=== PATIENT | female | born 1960 | race Caucasian/White ===

== ENCOUNTER 2022-02-08 18:02 | Observation (INO) | payer OTHER, SELFPAY ==
--- NOTE | ~2022-02-08 | MR_ITS ---
EXAMINATION: MR MRCP wo/w con/w 3D wo ind DATE: 02/09/2022 10:55 INDICATION: Elevated liver function tests. TECHNIQUE: Magnetic resonance imaging (MRI) of the abdomen was performed without and with 14 mL Multi jaime intravenous contrast. Sequences included coronal T2-weighted SS-FSE, coronal T2-weighted FS SS- FSE, coronal T2-weighted FS FIESTA, axial T2-weighted FS FIESTA, axial T2-weighted FIESTA, sagittal T 2-weighted SS-FSE, axial T1-weighted dual-echo FSPGR, axial T2-weighted SS-FSE, axial T1-weighted LAV A, axial T2-weighted STIR FSE. Thick-slab T2-weighted FRFSE-XL images were obtained for magnetic reso nance cholangiopancreatography (MRCP). Rotating maximum intensity projection 3-D reconstructions of t he volumetric data were created by the technologist. Postcontrast sequences included a time course of axial T1-weighted LAVA. COMPARISON: None. FINDINGS: ABDOMEN MRI: Heart size is normal. No pericardial or pleural effusion. There is mild intrahepatic barb iary ductal dilation and periportal edema. No hepatic parenchymal lesions identified. Pancreas, splee n and bilateral adrenal glands are normal. Sludge and multiple low signal intensity gallstones within the decompressed gallbladder. 3 cm right renal cyst. Couple additional <5 mm bilateral renal cysts. There is focal wall thickening along the distal descending colon with stranding in the surrounding fa t. Remainder the visualized bowels are unremarkable with no obstruction. No pathologically enlarged a bdominal lymphadenopathy. Normal bone marrow signal throughout. ABDOMEN MRCP: In addition to the mild intrahepatic biliary ductal dilation there is dilation of the common bile susan t which measures up to 1.3 cm in maximal diameter. A couple small mobile gallstones are seen in the d istal common bile duct, the larger measuring 4-5 mm in maximal diameter. These appear to change sligh tly in position when comparing the MRCP images with several of the third T2-weighted images. Main taylor creatic duct is normal. IMPRESSION: 1. Wall thickening and surrounding inflammatory stranding at the distal descending colon with differe ntial including focal colitis, diverticulitis or colon cancer. Correlate clinically and would recomme nd further evaluation with colonoscopy when clinically appropriate. 2. Cholelithiasis and choledocholithiasis with mild intrahepatic biliary ductal dilation, mild to mod erate dilation of the common bile duct which measures up to 13 mm and mild periportal edema. Reviewed, dictated and finalized at location B. IMPRESSION: 1. Wall thickening and surrounding inflammatory stranding at the distal descend ing colon with differential including focal colitis, diverticulitis or colon ca ncer. Correlate clinically and would recommend further evaluation with colonosc opy when clinically appropriate. 2. Cholelithiasis and choledocholithiasis with mild intrahepatic biliary ductal dilation, mild to moderate dilation of the common bile duct which measures up to 13 mm and mild periportal edema.
--- NOTE | ~2022-02-08 | XR_ITS ---
EXAMINATION: XR ERCP DATE: 02/09/2022 14:42 INDICATION: Choledocholithiasis TECHNIQUE: Multiple spot fluoroscopic images of the right upper quadrant were obtained during endosco pic retrograde cholangiopancreatography (ERCP) performed by Dr. Laird. Radiologist was not present for the imaging or procedure. The amount of fluoroscopy time used during this procedure was 1 .4 minutes. A total of 7 fluoroscopic images were recorded. Total DAP was [id number] mGym^2 COMPARISON: 02/09/2022 FINDINGS: Initial images demonstrate cannulation of the ampulla and retrograde contrast administration which ap pears to fill the main pancreatic duct as well as a draining accessory pancreatic duct of [place] w hich appears to drain into the duodenum via the minor papilla. Subsequent images demonstrate cannulat ion and contrast opacification of the dilated common bile duct. Final images demonstrate a balloon sw eeping from proximal to distal along the common bile duct. A small filling defect is seen in the duct distal to the balloon on the penultimate image which appears to obstruct passage of contrast into th e duodenum. The filling defect which likely represents the gallstone identified on prior MR CP is no longer visualized on the final image which demonstrates some drainage of contrast from the common barb e duct into the duodenum. IMPRESSION: 1. Dilation the common bile duct likely secondary to what appears be a gallstone in the distal common bile duct and suggestion of successful balloon sweeping and removal of the stone with contrast drain ing from the common bile duct into the duodenum on the final image. Please refer to the ERCP procedur e note for additional details. Reviewed, dictated and finalized at location B. IMPRESSION: 1. Dilation the common bile duct likely secondary to what appears be a gallston e in the distal common bile duct and suggestion of successful balloon sweeping and removal of the stone with contrast draining from the common bile duct into the duodenum on the final image. Please refer to the ERCP procedure note for ad ditional details.
[2022-02-08 07:40] VITALS: BP 138/74; PULSE 57; RESP 16; TEMP 35.6; O2SAT 98
[2022-02-08 09:16] LABS: Basophils Percent Auto 0.6 % (0.2-1.2); Eosinophils Absolute Auto 0.1 K/mm3 (0-0.3); Eosinophils Percent Auto 0.8 % (0-4.4); Hematocrit 42.8 % (37.0-47.0); Hemoglobin 13.5 g/dL (12.0-15.0); Immature Granulocyte Absolute 0.01 K/mm3 (0.00-0.031); Immature Granulocyte Percent A 0.2 % (0-0.5); Lymphocytes Absolute Auto 1.18 K/mm3 (0.9-3.2); Mean Corpuscular HGB Conc 31.5 g/dl (32-36); Mean Corpuscular Hemoglobin 28.4 pg (26-34); Mean Corpuscular Volume 89.9 fl (80-100); Mean Platelet Volume 10.3 fl (7.4-10.4); Monocytes Absolute Auto 0.5 K/mm3 (0.1-0.6); Monocytes Percent Auto 8.5 % (2.6-8.5); Neutrophils Absolute Auto 4.4 K/mm3 (1.3-6.7); Neutrophils Percent Auto 70.9 % (45.5-73.1); Platelet Count Result 182 k/mm3 (150-375); Red Blood Count 4.76 M/mm3 (4.2-5.4); Red Cell Distribution Width 14.1 % (11.5-14.5); White Blood Count 6.2 K/mm3 (4.5-10.0)
[2022-02-08 09:35] LABS: Alanine Aminotransferase 31 U/L (6-35); Albumin Level 3.7 g/dL (3.5-5.1); Alkaline Phosphatase 109 U/L (38-126); Anion Gap 3 mmol/L (8-16); Aspartate Amino Transferase 42 U/L (14-36); Bilirubin,Total 0.7 mg/dL (0.2-1.3); Blood Urea Nitrogen 9 mg/dL (7-17); Calcium 8.2 mg/dL (8.4-10.2); Carbon Dioxide 30 mmol/L (22-30); Chloride 107 mmol/L (98-107); Estimated Glomerular Filt Rate > 60; Glucose 88 mg/dL (65-110); Potassium 3.7 mmol/L (3.4-5.0); Sodium 140 mmol/L (137-145)
[2022-02-08 09:39] LABS: Lactic Acid Reflex 1.5 mmol/L (0.7-2.0)
[2022-02-08 09:51] LABS: Hemoglobin A1C 5.1 % (<5.7)
[2022-02-08 10:04] VITALS: BMI 25.9
--- NOTE | 2022-02-08 10:09 | ADMGEN ---
This patient, Jordyn eKrr, was admitted to [facility] Room 310-01 at 0740. Patient/family oriented to hospital policies and general routines including ID bracelet, bed and alarms, visiting hours, pain management, procedures, bathroom and other care routines, personal items, smoking policy, room service/diet, and visiting hours. Information on how to activate the Rapid Response Team has been discussed. Patient/Family are encouraged to report perceived risks to care and to ask questions if they do not understand what they are told or what they should do.
[2022-02-08] MEDS: DOCUSATE SODIUM 100 MG CAPSULE PO (14:43)
[2022-02-08 16:00] VITALS: O2SAT 98
--- NOTE | 2022-02-08 16:36 | PM.IMHP ---
H&P: HPI History of Present Illness Date/Time: 02/08/22 16:36 Chief Complaint: Abdominal pain Narrative: 61-year-old female with past medical history significant for hypothyroidism as well as esophageal stricture requiring dilation about a year ago, presented to [facility] with severe abdominal pain after eating. CT scan done in the ER there showed obstructing stone suspected, so patient was transferred here for possible ERCP. Upon her arrival to our facility, all of her symptoms are completely resolved and she is eager for a diet. She does admit to having a several year history of postprandial discomfort, but nothing as severe as she had yesterday. She denied any associated chest pain or shortness of breath. There was no nausea, vomiting or diarrhea. She did not have any fevers or chills. GI has seen the patient, due to her symptoms being completely resolved, an MRCP was ordered. Review of Systems Review of Systems: Twelve point review of systems was reviewed and is negative except as noted in the HPI [facility] Past Medical History Medical History Bile duct abnormality Biliary colic Cholelithiasis Elevated liver enzymes Esophageal stricture Nausea and vomiting in adult Upper abdominal pain Social History Social History Smoking packs per day: 1.5 Smoking cigarettes per day: 30.0 Years smoked: 45 Smoking pack-years: 67.50 Smoking status: Current every day smoker Tobacco type: cigarettes Alcohol intake: never Substance use: never Spiritual care concerns: No Meds Home Medications and Allergies Home Medications Medication Instructions Recorded Confirmed Type levothyroxine 100 mcg tablet 100 tablet PO DAILY 02/08/22 02/08/22 History omega-3 fatty acids-vitamin E 1,000 cap PO DAILY 02/08/22 02/08/22 History 1,000 mg capsule simvastatin 20 mg tablet 20 tablet PO DAILY 02/08/22 02/08/22 History Allergies Allergy/AdvReac Type Severity Reaction Status Date / Time Sulfa (Sulfonamide Allergy Blister Verified 02/08/22 10:31 Antibiotics) codeine AdvReac Jittery Verified 02/08/22 10:31 Vital Signs Vital Signs - 24 hr 02/08/22 07:40 02/08/22 12:11 Temperature 96.1 F L Pulse Rate 57 L Respiratory Rate 16 Blood Pressure 138/74 Pulse Oximetry 98 Oxygen Delivery Room Air Exam Narrative: General: Patient resting comfortably in bed, no acute distress HEENT: Atraumatic, normocephalic, mucous membranes moist CV: Regular rate and rhythm, S1, S2, no murmurs rubs or gallops noted Lungs: Clear to auscultation bilaterally, no rales or crackles noted, no wheezes, good air entry Abdomen: Soft, nontender, nondistended Extremities: Normal to inspection, no edema noted Skin: No rashes noted, no lesions or wounds seen Psych: Euthymic, normal affect Neuro: Cranial nerves 2-12 grossly intact, strength 5/5 upper and lower extremities noted H&P: Results Labs Labs: Short CBC 02/08/22 Range/Units 08:59 WBC 6.2 (4.5-10.0) K/mm3 Hgb 13.5 (12.0-15.0) g/dL Hct 42.8 (37.0-47.0) % Plt Count 182 (150-375) k/mm3 BMP 02/08/22 08:59 Sodium 140 Potassium 3.7 Chloride 107 Carbon Dioxide 30 BUN 9 Creatinine 0.80 Glucose 88 Calcium 8.2 L Liver Function 02/08/22 Range/Units 08:59 Total Bilirubin 0.7 (0.2-1.3) mg/dL AST 42 H (14-36) U/L ALT 31 (6-35) U/L Alkaline Phosphatase 109 (38-126) U/L Albumin 3.7 (3.5-5.1) g/dL Assessment and Plan Assessment and plan (1) Cholelithiasis: Code(s): K80.20 - Calculus of gallbladder without cholecystitis without obstruction Status: Acute Assessment and Plan: Follow-up MRCP (2) Hypothyroidism: Code(s): E03.9 - Hypothyroidism, unspecified Status: Acute Assessment and Plan: Continue home medications
--- NOTE | 2022-02-08 16:37 | WPDGICN ---
Assessment and Plan Assessment and plan (1) Upper abdominal pain: Code(s): R10.10 - Upper abdominal pain, unspecified Status: Acute Assessment and Plan: severe pain similar to previous biliary colic reviewed CT scan from outside facility that showed some biliary dilation and cholelithiasis but today she is asymptomatic with normal bilirubin, wonder if she already passed stone will get MRCP to get a better idea, of course if choledocholithiasis then will proceed with ercp. Will also check lipase and ask surgery to see for interval cholecystectomy trend liver enzymes (2) Cholelithiasis: Code(s): K80.20 - Calculus of gallbladder without cholecystitis without obstruction Status: Acute Assessment and Plan: surgery consult (3) Bile duct abnormality: Code(s): K83.9 - Disease of biliary tract, unspecified Status: Acute Assessment and Plan: mrcp to assess (4) Elevated liver enzymes: Code(s): R74.8 - Abnormal levels of other serum enzymes Status: Acute Assessment and Plan: trend lft's denies alcohol (5) Nausea and vomiting in adult: Code(s): R11.2 - Nausea with vomiting, unspecified Status: Acute Assessment and Plan: resolved ok to have CL diet and npo after midnight (6) Biliary colic: Code(s): K80.50 - Calculus of bile duct without cholangitis or cholecystitis without obstruction Status: Acute (7) Esophageal stricture: Code(s): K22.2 - Esophageal obstruction Status: Acute GI Consult Note Consult date/time: 02/08/22 16:37 Reason for consult: cholelithiasis, abnormal liver enzymes HPI: Jordyn Kerr is a 61 year old female with history of hypothyroidism with history of esophageal stricture that required in the past esophageal dilation (last time about 1 year ago and now without dysphagia) who has been having intermittent epigastric pain after eating fatty meals. She had severe upper abdominal pain yesterday after had spaghetti with nausea and vomiting, never had pain like that and went to ER at [facility]. CT scan a/p reviewed and showed cholelithiasis and intra and extrahepatic ductal dilation, possible small stone at the ampulla, mild diverticulitis, blood work ast 96,alt 27, bili 0.6, bc 9, hb 14. I was called by ER physician for transfer since they did not have GI on staff and patient may need ERCP. Today she is doing great, no more pain and she is hungry. Review of Systems Constitutional: Constitutional: Denies headache(s) and Denies weakness Eyes: Eyes: Denies blurry vision ENT: Reports Normal hearing present, Denies headache(s) and Denies neck pain Cardiovascular: Cardiovascular: Denies chest pain and Denies dyspnea Respiratory: Respiratory: Denies dyspnea Gastrointestinal: Gastrointestinal: Reports no additional gastrointestinal complaints Genitourinary: Genitourinary: Denies dysuria Musculoskeletal: Musculoskeletal: Denies neck pain Integumentary/Breasts: Skin/Breast: Denies dry skin Neurologic: Reports Normal hearing present, Denies headache(s) and Denies weakness Psychiatric: Psychiatric: Denies anxiety Endocrine: Endocrine: Denies change in body appearance Hematologic/Lymphatic: Hematologic/Lymphatic: Denies easy bleeding Allergic/Immunologic: Allergic/Immunologic: Denies urticaria PMFSH Past Medical History Medical History (Updated 02/08/22 @ 16:43 by Norris Knowles MD) Bile duct abnormality Biliary colic Cholelithiasis Elevated liver enzymes Esophageal stricture Nausea and vomiting in adult Upper abdominal pain Social History Social History Smoking packs per day: 1.5 Smoking cigarettes per day: 30.0 Years smoked: 45 Smoking pack-years: 67.50 Smoking status: Current every day smoker Tobacco type: cigarettes Alcohol intake: never Substance use: never Spiritual care concerns: No Meds Home Medications and Allergies Nathalie
[2022-02-08 16:39] VITALS: O2SAT 97
[2022-02-08] MEDS: ACETAMINOPHEN 325 MG TABLET 650 MG PO (18:04)
--- NOTE | 2022-02-08 20:43 | PM.CNGS ---
Assessment and Plan Assessment and plan (1) Cholelithiasis with chronic cholecystitis: Code(s): K80.10 - Calculus of gallbladder with chronic cholecystitis without obstruction Status: Chronic Assessment and Plan: Patient has chronic cholecystitis and cholelithiasis irrespective of whether common bile duct stones currently exists or not. I have recommended that she have elective outpatient laparoscopic cholecystectomy, preferably within the next 30 days assuming her symptoms of yesterday do not recur. I discussed the procedure the risks the benefits with her. I have recommended having intraoperative cholangiography at the time of cholecystectomy as well and explained the reasons for this. The usual recovery was discussed. If MRCP is negative tomorrow and others agree, she can be discharged on Saturday and my office will call to arrange elective outpatient laparoscopic cholecystectomy in the near future. Thank you for asking me to see this patient in consultation. (2) Bile duct abnormality: Code(s): K83.9 - Disease of biliary tract, unspecified Status: Acute Assessment and Plan: Abnormal bile duct on imaging. MRCP plan tomorrow. If MRCP is negative, we will most likely do intraoperative cholangiogram at the time of laparoscopic cholecystectomy as a precaution for common bile duct stones as well. History of Present Illness Consult details Consult date: 02/08/22 Reason for consult: abdominal pain Requesting physician: Norris Knowles MD Narrative: Patient is a 61-year-old woman who has had episodes of postprandial epigastric abdominal pain infrequently for several years. These are typically triggered after fatty meals. Yesterday the patient had spaghetti as well as buttered bread and experienced the worst episode of epigastric abdominal pain yet. It was far worse than a she had previously experienced. She went to [facility] where imaging showed gallstones and possibly some common bile duct stones. She reports that fentanyl was given to her. She was transferred to [place] as she may require ERCP. When she arrived at [place] her pain had completely resolved and has not recurred. She was seen the evening this evening and still feels good. Plans are for her to be observed overnight and have an MRCP tomorrow. If negative, and no return of symptoms, she could be discharged. I was asked to see her as her recurrent symptoms and gallstones suggest the need for cholecystectomy whether she currently has common bile duct stones or not. She does have a history of esophageal stricture that has been dilated in the past. She has never had any abdominal surgery. Review of Systems Review of Systems: All systems reviewed & are unremarkable except as noted in HPI and below Constitutional: Constitutional: Denies anorexia, Denies chills, Denies fatigue, Denies fever(s) and Denies night sweats Cardiovascular: Cardiovascular: Denies chest pain and Denies dyspnea Respiratory: Respiratory: Denies cough and Denies dyspnea Gastrointestinal: Gastrointestinal: Reports as per HPI, Reports abdominal pain, Reports nausea and Reports vomiting Integumentary/Breasts: Skin/Breast: Denies lesions and Denies rash [facility] Past Medical History Medical History Bile duct abnormality Biliary colic Cholelithiasis Elevated liver enzymes Esophageal stricture Nausea and vomiting in adult Upper abdominal pain Social History Social History Smoking packs per day: 1.5 Smoking cigarettes per day: 30.0 Years smoked: 45 Smoking pack-years: 67.50 Smoking status: Current every day smoker Tobacco type: cigarettes Alcohol intake: never Substance use: never Spiritual care concerns: No Meds Home Medications and Allergies Home Medications Medication Instructions Recorded Confirmed
[2022-02-08 22:00] VITALS: BP 133/65; PULSE 57; RESP 16; TEMP 36.1; O2SAT 98
[2022-02-08] MEDS: SIMVASTATIN 20 MG TABLET PO (22:34)
[2022-02-08] MEDS: LEVOTHYROXINE SODIUM 100 MCG TABLET PO (22:34)
[2022-02-09] VITALS (11 sets, daily range): BP systolic 115–175; BP diastolic 61–93; PULSE 47–72; RESP 12–26; TEMP 35.8–36.6; O2SAT 94–100
[2022-02-09 06:27] LABS: Alanine Aminotransferase 23 U/L (6-35); Albumin Level 3.5 g/dL (3.5-5.1); Alkaline Phosphatase 94 U/L (38-126); Anion Gap 2 mmol/L (8-16); Aspartate Amino Transferase 25 U/L (14-36); Bilirubin,Total 0.8 mg/dL (0.2-1.3); Blood Urea Nitrogen 9 mg/dL (7-17); Carbon Dioxide 29 mmol/L (22-30); Chloride 108 mmol/L (98-107); Estimated CRCL calculation 67 ml/min; Estimated Glomerular Filt Rate > 60; Glucose 76 mg/dL (65-110); Lipase 28 U/L (23-300); Potassium 3.6 mmol/L (3.4-5.0); Sodium 139 mmol/L (137-145)
[2022-02-09 06:45] LABS: Appearance Urine Slightly Cloudy (Clear); Bilirubin Urine Negative (Negative); Blood Urine 2+ (Negative); Color Urine Yellow (Yellow); Glucose Urine UA Negative (Negative); Ketones Urine Negative (Negative); Leukocyte Esterase Ur Negative LEU/UL (Negative); Nitrate Urine Negative (Negative); Protein Urine Negative (Negative)
--- NOTE | 2022-02-09 06:45 | PM.PNGS ---
Progress Note: A&P Assessment and Plan (1) Cholelithiasis with chronic cholecystitis: Code(s): K80.10 - Calculus of gallbladder with chronic cholecystitis without obstruction Status: Chronic Assessment and Plan: CMP and lipase are normal this morning. Patient to have MRCP. She can go home if this test is negative from my perspective. My office will call her on Saturday to schedule laparoscopic cholecystectomy. I again discussed the procedure of laparoscopic cholecystectomy with intraoperative cholangiogram. All questions were answered. She is comfortable with proceeding as an outpatient assuming all goes well with the MRI today. Subjective Subjective Date/Time Seen: 02/09/22 06:45 Patient reports: no new complaints, feels better and pain is less ( No abdominal pain through the night) Review of Systems Review of Systems: All systems reviewed & are unremarkable except as noted in HPI and below Cardiovascular: Cardiovascular: Denies chest pain and Denies dyspnea Respiratory: Respiratory: Denies cough and Denies dyspnea Gastrointestinal: Gastrointestinal: Reports as per HPI Exam Const: General: comfortable and no acute distress; No confusion Orientation/consciousness: patient oriented x3 and No confusion GI: Inspection: normal to inspection and non-distended GI Palp: Yes Soft to palpation, No Tenderness to palpation present (GI), No Guarding due to palpation present (GI) and No Rebound tenderness present Auscultation: normal bowel sounds Neuro: General: patient oriented x3, no focal motor deficits and No confusion Extrem: General: no calf tenderness and no edema Psych: Affect: normal affect Insight: Good insight present (Psych) Judgement: Good judgement present (Psych) Objective Data Vital Signs Vital Signs: Vital Signs - 24 hr 02/08/22 07:40 02/08/22 12:11 02/08/22 16:00 Temperature 35.6 C L Pulse Rate 57 L Respiratory Rate 16 Blood Pressure 138/74 Pulse Oximetry 98 98 Oxygen Delivery Room Air 02/08/22 16:39 02/08/22 19:55 02/08/22 22:00 Temperature 36.1 C L Pulse Rate 57 L Respiratory Rate 16 Blood Pressure 133/65 Pulse Oximetry 97 98 Oxygen Delivery Room Air 02/09/22 06:00 Temperature 36.6 C Pulse Rate 68 Respiratory Rate 16 Blood Pressure 115/61 Pulse Oximetry 94 Oxygen Delivery Intake/Output Intake/Output: Intake & Output 02/06/22 02/07/22 02/08/2222 23:59 23:59 23:59 23:59 Intake Total 300 300 Output Total 1000 Balance 300 -700 Meds/Results Medications: Active Medications Generic Name Dose Route Start Last Admin Trade Name Kacey PRN Reason Stop Dose Admin Acetaminophen 650 mg 02/08/22 08:44 02/08/22 18:04 Acetaminophen 325 Mg Tablet PO 650 mg Q4H PRN Administration Mild Pain (1-3) or Fever Hydrocodone Bitart/Acetaminophen 1 tab 02/08/22 08:51 Hydrocodone/Acetaminophen (*Crx) 5-325 Mg Tablet PO Q4H PRN Moderate Pain (4-6) Docusate Sodium 100 mg 02/08/22 14:45 Docusate Sodium 100 Mg Capsule PO BID PRN Constipation Fish Oil 1 gm 02/09/22 09:00 [place] 3 Polyunsat Fatty Acids 1 Gm Cap PO 03/11/22 08:59 DAILY MEKA Levothyroxine Sodium 100 mcg 02/08/22 21:55 02/08/22 22:34 Levothyroxine Sodium 100 Mcg Tablet PO 100 mcg HS MEKA Administration Ondansetron HCl 4 mg 02/08/22 08:44 Ondansetron Inj 4 Mg/2 Ml Vial IV PUSH Q6H PRN Nausea And Vomiting Simvastatin 20 mg 02/08/22 21:55 02/08/22 22:34 Simvastatin 20 Mg Tablet PO 20 mg HS MEKA Administration Labs Labs: Laboratory Results - last 24 hr 02/08/22 02/08/22 02/08/22 08:59 08:59 08:59 WBC 6.2 RBC 4.76 Hgb 13.5 Hct 42.8 MCV 89.9 MCH 28.4 MCHC 31.5 L RDW 14.1 Plt Count 182 MPV 10.3 Immature Gran % (Auto) 0.2 Neut % (Auto) 70.9 Lymph % (Auto) 19.0 Ross % (Auto) 8.5 Eos % (Auto) 0.8 Baso % (Auto) 0.6
[2022-02-09 06:47] LABS: Squamous Epithelial Cell Urine Occasional /hpf (Few); WBC Urine 0-3 /hpf
[2022-02-09 07:07] LABS: Add Urine Microscopic? YES
[2022-02-09] MEDS: LACTATED RINGERS 1,000 ML 150 ML IV CONT (12:57)
--- NOTE | 2022-02-09 13:04 | WPDANESEPPF ---
Anes - Initial Pre Proc Eval Procedure: Operation Date: 02/09/22 15:15 Proposed Procedures p Endoscopic Retro Cholangiopancreatogram - Norris Knowles MD Date/Time: 02/09/22 13:04 Surgeon: Antionette Barth DO Pre Op Diagnosis: Cholelithiasis & Choledocholithasis Patient Data Age: 61 Gender: F Height: 1.68 m Weight: 72.8 kg Last Vital Signs Temp 36.3 C L 02/09/22 12:50 Pulse 72 02/09/22 12:50 Resp 16 02/09/22 12:50 BP 135/75 02/09/22 12:50 Pulse Ox 98 02/09/22 12:50 O2 Del Method Room Air 02/09/22 12:50 Allergies Allergy/AdvReac Type Severity Reaction Status Date / Time Sulfa (Sulfonamide Allergy Blister Verified 02/09/22 12:53 Antibiotics) codeine AdvReac Jittery Verified 02/09/22 12:53 Home Medications Medication Instructions Recorded Confirmed Type levothyroxine 100 mcg tablet 100 tablet PO HS 02/08/22 02/08/22 History omega-3 fatty acids-vitamin E 1,000 cap PO DAILY 02/08/22 02/08/22 History 1,000 mg capsule simvastatin 20 mg tablet 20 tablet PO HS 02/08/22 02/08/22 History Laboratory Tests 02/08/22 02/09/22 21:11 05:37 Sodium 139 mmol/L mmol/L (137-145) Potassium 3.6 mmol/L mmol/L (3.4-5.0) Chloride 108 mmol/L H mmol/L (98-107) Carbon Dioxide 29 mmol/L mmol/L (22-30) Anion Gap 2 mmol/L L mmol/L (8-16) BUN 9 mg/dL mg/dL (7-17) Creatinine 0.70 mg/dL mg/dL (0.7-1.0) Estim Creat Clear Calc 67 ml/min ml/min Estimated GFR > 60 (59 - ) Glucose 76 mg/dL mg/dL (65-110) Calcium 8.0 mg/dL L mg/dL (8.4-10.2) Total Bilirubin 0.8 mg/dL mg/dL (0.2-1.3) AST 25 U/L U/L (14-36) ALT 23 U/L U/L (6-35) Alkaline Phosphatase 94 U/L U/L (38-126) Total Protein 6.0 g/dL L g/dL (6.3-8.2) Albumin 3.5 g/dL g/dL (3.5-5.1) Lipase 28 U/L U/L (23-300) Urine Color Yellow (Yellow) Urine Appearance Slightly cloudy (Clear) Urine pH 6.0 (5.0-9.0) Ur Specific [place] 1.020 (1.001-1.035) Urine Protein Negative mg/dL mg/dL (Negative) Urine Glucose (UA) Negative mg/dL mg/dL (Negative) Urine Ketones Negative mg/dL mg/dL (Negative) Ur Blood (Man) 2+ H (Negative) Urine Nitrate Negative (Negative) Urine Bilirubin Negative (Negative) Urine Urobilinogen 2.0 mg/dL H mg/dL (<2.0) Leukocyte Esterase Rfl Negative DANYELL/UL DANYELL/UL (Negative) Urine RBC 6-10 /hpf H /hpf (0-2) Urine WBC 0-3 /hpf /hpf Ur Squamous Epith Cells Occasional /hpf /hpf (Few) Patient hx anesthesia problems: none Family hx anesthesia problems: none Results Review: All pre-operative results and documents have been reviewed as part of the pre-operative evaluation. [facility] Past Medical History Medical History Bile duct abnormality Biliary colic Cholelithiasis Elevated liver enzymes Esophageal stricture Nausea and vomiting in adult Upper abdominal pain Social History Social History Smoking packs per day: 1.5 Smoking cigarettes per day: 30.0 Years smoked: 45 Smoking pack-years: 67.50 Smoking status: Current every day smoker Tobacco type: cigarettes Alcohol intake: never Substance use: never Spiritual care concerns: No Anes - Eval Final PreProcedure Day of Procedure 02/09/22 13:04 Patient weight: overweight Heart: regular rate and rhythm Lungs: clear to auscultation Airway: Mallampati scale class II Neurological: alert and oriented Last oral intake: >/= 8 hours ASA classification: III Emergent: no Anesthetic plan: proceed Anesthesia type and monitoring: general ETT and standard monitoring Results Review: All pre-operative results and documents have been reviewed as part of the pre-
[2022-02-09] MEDS: INDOMETHACIN 50 MG SUPP.RECT RECTAL (13:38)
[2022-02-09] MEDS: HYDROcodone/acetaminophen (*CRX) 5-325 MG TABLET 1 TAB PO (16:30)
--- NOTE | 2022-02-09 16:30 | PM.IMPN ---
Progress Note: A&P Assessment and Plan (1) Cholelithiasis: Code(s): K80.20 - Calculus of gallbladder without cholecystitis without obstruction Status: Acute Assessment and Plan: MRCP showed choledocholithiasis, ERCP completed with stone retrieval, outpatient cholecystectomy being planned, discharge after tolerating diet (2) Hypothyroidism: Code(s): E03.9 - Hypothyroidism, unspecified Status: Acute Assessment and Plan: Continue home medications Subjective Date/time seen: 02/09/22 16:30 Interval history: Patient resting comfortably. No overnight events noted. No chest pain or shortness of breath. No nausea, vomiting or diarrhea. No fevers or chills. Review of Systems Review of Systems: 12 point review of systems was assessed and was negative except as noted in the HPI Exam Narrative: General: Patient resting comfortably in bed, no acute distress HEENT: Atraumatic, normocephalic, mucous membranes moist CV: Regular rate and rhythm, S1, S2, no murmurs rubs or gallops noted Lungs: Clear to auscultation bilaterally, no rales or crackles noted, no wheezes, good air entry Abdomen: Soft, nontender, nondistended Extremities: Normal to inspection, no edema noted Skin: No rashes noted, no lesions or wounds seen Psych: Euthymic, normal affect Neuro: Cranial nerves 2-12 grossly intact, strength 5/5 upper and lower extremities noted Objective Data Vital Signs Vital Signs: Vital Signs - 24 hr 02/08/22 16:39 02/08/22 19:55 02/08/22 22:00 Temperature 96.9 F L Pulse Rate 57 L Respiratory Rate 16 Blood Pressure 133/65 Pulse Oximetry 97 98 Oxygen Delivery Room Air Oxygen Flow Rate 02/09/22 06:00 02/09/22 12:50 02/09/22 14:05 Temperature 97.8 F 97.3 F L Pulse Rate 68 72 60 Respiratory Rate 16 16 26 H Blood Pressure 115/61 135/75 141/74 H Pulse Oximetry 94 98 100 Oxygen Delivery Room Air Simple Face Mask Oxygen Flow Rate 6 02/09/22 14:15 02/09/22 14:25 02/09/22 14:35 Temperature 97.3 F L Pulse Rate 47 L 51 L 55 L Respiratory Rate 16 21 H 12 Blood Pressure 138/71 143/80 H 166/93 H Pulse Oximetry 100 99 99 Oxygen Delivery Room Air Room Air Room Air Oxygen Flow Rate 02/09/22 14:45 02/09/22 14:55 02/09/22 15:05 Temperature Pulse Rate 51 L 52 L 52 L Respiratory Rate 18 16 16 Blood Pressure 175/90 H 153/90 H 166/72 H Pulse Oximetry 99 99 99 Oxygen Delivery Room Air Room Air Room Air Oxygen Flow Rate 02/09/22 15:36 Temperature 96.4 F L Pulse Rate 55 L Respiratory Rate 16 Blood Pressure 162/64 H Pulse Oximetry 98 Oxygen Delivery Oxygen Flow Rate Intake/Output Intake/Output: Intake & Output 02/06/22 02/07/22 02/08/22 02/09/22 23:59 23:59 23:59 23:59 Intake Total 300 300 Output Total 1200 Balance 300 -900 Meds/Results Medications: Active Medications Generic Name Dose Route Start Last Admin Trade Name Freq PRN Reason Stop Dose Admin Acetaminophen 650 mg 02/08/22 08:44 02/08/22 18:04 Acetaminophen 325 Mg Tablet PO 650 mg Q4H PRN Administration Mild Pain (1-3) or Fever Hydrocodone Bitart/Acetaminophen 1 tab 02/08/22 08:51 Hydrocodone/Acetaminophen (*Crx) 5-325 Mg Tablet PO Q4H PRN Moderate Pain (4-6) Docusate Sodium 100 mg 02/08/22 14:45 Docusate Sodium 100 Mg Capsule PO BID PRN Constipation Fish Oil 1 gm 02/09/22 09:00 02/09/22 09:17 [place] 3 Polyunsat Fatty Acids 1 Gm Cap PO 03/11/22 08:59 Not Given DAILY MEKA Levothyroxine Sodium 100 mcg 02/08/22 21:55 02/08/22 22:34 Levothyroxine Sodium 100 Mcg Tablet PO 100 mcg HS MEKA Administration Ondansetron HCl 4 mg 02/08/22 08:44 Ondansetron Inj 4 Mg/2 Ml Vial IV PUSH Q6H PRN Nausea And Vomiting Simvastatin 20 mg 02/08/22 21:55 02/08/22 22:34 Simvastatin 20 Mg Tablet PO 20 mg HS MEKA Administration Radiology Results: ITS Impressions MRCP 02/09/22
[2022-02-09] MEDS: ONDANSETRON INJ 4 MG/2 ML VIAL IV PUSH (16:32)
[2022-02-09] MEDS: LEVOTHYROXINE SODIUM 100 MCG TABLET PO (20:07)
[2022-02-09] MEDS: SIMVASTATIN 20 MG TABLET PO (20:07)
[2022-02-10 05:34] VITALS: BP 120/69; PULSE 60; RESP 16; TEMP 36.1; O2SAT 99
[2022-02-10 08:00] VITALS: PULSE 60; RESP 16; O2SAT 99
[2022-02-10] MEDS: OMEGA 3 POLYUNSAT FATTY ACIDS 1 GM CAP PO (08:07)
--- NOTE | 2022-02-10 09:19 | WPDANESPN ---
Anes - Prog Note Post-Op Date/Time: 02/10/22 09:19 Cardiovascular status: normal Respiratory status: normal Airway patency: baseline Mental status: baseline Post-Op hydration status: normal Vital Signs: Last Vital Signs Temp 96.9 F L 02/10/22 05:34 Pulse 60 02/10/22 05:34 Resp 16 02/10/22 05:34 BP 120/69 02/10/22 05:34 Pulse Ox 99 02/10/22 05:34 O2 Del Method Room Air 02/09/22 20:00 O2 Flow Rate 6 02/09/22 14:05 Pain Score (VAS): 0 I/O: Intake & Output 02/09/22 02/10/22 02/10/22 23:59 07:59 15:59 Intake Total 840 750 Output Total 450 Balance 390 750 Laboratory Tests 02/08/22 08:59 02/09/22 05:37 Post-procedural complaints: other (sore throat) Patient Feedback: Patient satisfied with anesthetic care.
--- NOTE | 2022-02-10 12:40 | PM.DS ---
DS: Admitting Diagnosis Discharge Date 02/10/22 Admitting Diagnosis Abdominal pain DS: Discharge Diagnosis Discharge Diagnosis (1) Cholelithiasis: Code(s): K80.20 - Calculus of gallbladder without cholecystitis without obstruction Status: Acute Assessment and Plan: MRCP showed choledocholithiasis, ERCP completed with stone retrieval, outpatient cholecystectomy being planned, discharge after tolerating diet (2) Hypothyroidism: Code(s): E03.9 - Hypothyroidism, unspecified Status: Acute Assessment and Plan: Continue home medications DS: Summary Hospital Course Hospital Course: 61-year-old female with past medical history significant for hypothyroidism, esophageal stricture requiring dilation about a year ago nothing presented to [facility] with severe abdominal pain after eating. CT scan showed possible obstructing stone so she was transferred to our facility for ERCP. Upon arrival, all symptoms had resolved, so an MRCP was ordered by GI he was consulted. MRCP did show cholelithiasis with choledocholithiasis as well as sludge and so an ERCP was performed and stone extraction was completed. General surgery was consulted for outpatient cholecystectomy. Patient was discharged in good condition without any complaints with close outpatient follow-up by GI and General surgery for cholecystectomy. Status at Discharge Functional status at discharge: independent ambulation Overall status at discharge: patient is back to baseline Time Spent with Patient Time attestation: Total time spent providing and/or coordinating discharge services: Time spent: Greater than 30 minutes Exam Narrative: General: Patient resting comfortably in bed, no acute distress HEENT: Atraumatic, normocephalic, mucous membranes moist CV: Regular rate and rhythm, S1, S2, no murmurs rubs or gallops noted Lungs: Clear to auscultation bilaterally, no rales or crackles noted, no wheezes, good air entry Abdomen: Soft, nontender, nondistended Extremities: Normal to inspection, no edema noted Skin: No rashes noted, no lesions or wounds seen Psych: Euthymic, normal affect Neuro: Cranial nerves 2-12 grossly intact, strength 5/5 upper and lower extremities noted Discharge Plan Discharge Attending physician on discharge: Caitlin Almodovar Consulting providers: Norris Knowles ; Sam Mariscal Discharging Clinician: Caitlin Almodovar Patient Disposition: Home, Self-Care Activity: as tolerated Diet: low fat Discharge Instructions: Low-fat diet Dr. Lofton office will call next week to schedule laparoscopic cholecystectomy with intraoperative cholangiogram to be done as an outpatient in the near future. Please call Dr. Lofton office if any questions or if you wish to see him in the office before surgery. Patient Instructions: Antibiotic Form, Gallstones (DC), MRCP (Magnetic Resonance Cholangiopancreatography) (DC), ERCP (Endoscopic Retrograde Cholangiopancreatography) (DC) Stand Alone Forms: General Discharge Information Follow-up/Referrals: Sam Mariscal MD [Physician] - (Dr. Mariscal's office will call to schedule surgery) Discharge Medications: Continued levothyroxine 100 mcg tablet 100 tablet PO HS simvastatin 20 mg tablet 20 tablet PO HS omega-3 fatty acids-vitamin E 1,000 mg Capsule 1,000 cap PO DAILY Date of admission: 02/08/22 18:02 Primary Care Provider: CherylBobbi Admitting Provider: Antionette Barth Attending physician on admission: Antionette Barth Condition: Stable
== END 2022-02-10 12:25 | disposition home or self-care (01) ==
PROVIDERS: Internal Medicine Gastroenterology; Admitting Provider Student in an Organized Health Care Education/Training Program; PCP Internal Medicine; Visit Provider Student in an Organized Health Care Education/Training Program
PROC: (CPT 43260; principal; 2022-02-09 15:15)
DX: K80.20 Calculus of gallbladder without cholecystitis without obstruction (principal); K80.50 Calculus of bile duct without cholangitis or cholecystitis without obstruction; R74.8 Abnormal levels of other serum enzymes; K22.2 Esophageal obstruction; F17.210 Nicotine dependence, cigarettes, uncomplicated; E03.9 Hypothyroidism, unspecified
CPT/HCPCS: 43262; 43264; 36415; 74183; 74329; 76376; 80053; 81001; 83036; 83605; 83690; 85025; A9270; A9577; G0378; G0379; J0330; J1100; J2405; J2704; J7120; Q9966

== ENCOUNTER 2022-02-14 08:11 | Outpatient (CLI) | payer OTHER, SELFPAY ==
--- NOTE | 2022-02-14 08:23 | ECG_ITS ---
Measurements Intervals [place] Rate: 59 P: 55 IN: 143 QRS: -29 QRSD: 90 T: 45 QT: 435 QTc: 434 Interpretive Statements SINUS BRADYCARDIA BORDERLINE LEFT AXIS DEVIATION [QRS AXIS < -20] NO PREVIOUS ECG AVAILABLE FOR COMPARISON Electronically Signed On 02-14-2022 12:44:13 CDT by Marlene Scott M.D.
[2022-02-14 09:11] LABS: Alanine Aminotransferase 39 U/L (6-35); Alkaline Phosphatase 133 U/L (38-126); Amylase 70 U/L (30-110); Aspartate Amino Transferase 21 U/L (14-36); Bilirubin,Total 0.8 mg/dL (0.2-1.3); Lipase 40 U/L (23-300)
== END 2022-02-14 08:12 | disposition home or self-care (01) ==
LOC: ANHSURGERY 08:16
PROVIDERS: PCP Internal Medicine; Visit Provider Surgery
DX: Z01.812 Encounter for preprocedural laboratory examination (principal); K80.50 Calculus of bile duct without cholangitis or cholecystitis without obstruction; F17.210 Nicotine dependence, cigarettes, uncomplicated; R00.1 Bradycardia, unspecified
CPT/HCPCS: 36415; 80076; 82150; 83690; 86850; 86900; 86901; 93005

== ENCOUNTER 2022-02-16 01:44 | Day surgery (SDC) | payer OTHER, SELFPAY ==
[2022-02-13 14:45] VITALS: BMI 26.6
--- NOTE | 2022-02-13 14:51 | PC.NURSE ---
Report to the Outpatient Waiting Room, entrance under the green pavilion located off [facility], at time __1230 on date 02/16/22__. OR Time: _1430_. - You and your visitor will be asked a series of questions to screen for COVID 19 for your protection. - Only one visitor is allowed at this time. - The patient visitor is requested to leave or wait in car when not with patient. - A mask is required within the hospital. Patients may have clear liquids (water, carbonated beverages, clear teas, apple juice) until 3 hours prior to surgery with a maximum of 20 ounces. - No food from midnight until time of surgery - Infants may have breast milk until 4 hours before surgery, infant formula 6 hours prior to surgery. - Children will be allowed to drink immediately following surgery. If applicable, please bring a bottle or sippy cup to assist with drinking. Juice, water, soda, and popsicles are readily available. For infants on formula, please bring formula the day of surgery. Pacifiers are allowed. Take the following medications with a SIP of water the morning of surgery: _NONE Medications to discontinue per physician OMEGA 3 Date to take last dose____02/13/22 Please no make-up, nail [place], hairspray, perfume, deodorant, or body powder the day of surgery. No jewelry (including any body piercings) or valuables the day of surgery, leave them at home. Please take a shower or bath the night before, or the morning of, surgery with an antibacterial soap. Wear comfortable, loose fitting clothing. Children are encouraged to wear pajamas. - Jewelry must be removed prior to entering the operating room. Rings and piercings that are not removed may be cut off. - The hospital will not accept responsibility for valuables. - Please leave all valuables, including medications, at home the day of surgery. If you are going home after surgery, a licensed water tanker driver must drive you home. - NO public transportation without another adult. - We recommend that an adult stay with you for 24 hours following discharge. - We also recommend that you do not drive, make important decision, drink alcoholic beverages, or take any drugs that were not prescribed by your health care provider for at least 24 hours after your discharge time. For Pediatric surgeries, we recommend two adults accompany the child home (only one inside the building at this time). Follow any additional instructions given to you from your surgeon. If you or anyone in your household have experienced Covid symptoms in the past week, please notify your surgeon or the nurse liaison at the phone number below for possible testing. Telephone instructions given to __PATIENT and asked if any additional questions and then verbalized understanding. Patient advised to call surgeon office or pre surgery nurse liaison [phone] if any additional questions.
[2022-02-16] VITALS (10 sets, daily range): BP systolic 113–140; BP diastolic 60–78; PULSE 64–74; RESP 16–22; TEMP 36.6–36.9; O2SAT 94–100
--- NOTE | 2022-02-16 07:14 | WPDHPUPDATE1 ---
History and Physical Update Update Date/Time: 02/16/22 07:14 History and Physical has been reviewed, including an updated exam of the patient. There are NO changes in the patient's condition. Risks, benefits, and alternatives have been discussed and questions answered. Patient agrees to proceed with procedure.
[2022-02-16] MEDS: LACTATED RINGERS 1,000 ML 30 ML IV CONT ×2 (07:26→10:56)
[2022-02-16] MEDS: KETOROLAC 15 MG/ML VIAL (*BKC) IV PUSH (07:26)
[2022-02-16] MEDS: ACETAMINOPHEN 500 MG TABLET 1000 MG PO (07:26)
--- NOTE | 2022-02-16 07:35 | P.PNAN_ITS ---
Anes - Initial Pre Proc Eval Procedure: Operation Date: 02/16/22 08:45 Proposed Procedures p Laparoscopic Cholecystectomy - Sam Mariscal MD Date/Time: 02/16/22 07:35 Surgeon: Sam Mariscal MD Pre Op Diagnosis: cholelithiasis Patient Data Age: 61 Gender: F Height: 1.68 m Weight: 75 kg Last Vital Signs Temp 36.6 C 02/16/22 06:57 Pulse 69 02/16/22 06:57 Resp 18 02/16/22 06:57 BP 118/60 02/16/22 06:57 Pulse Ox 97 02/16/22 06:57 O2 Del Method Room Air 02/16/22 06:57 Allergies Allergy/AdvReac Type Severity Reaction Status Date / Time Sulfa (Sulfonamide Allergy Blister Verified 02/13/22 14:41 Antibiotics) codeine AdvReac Jittery Verified 02/13/22 14:41 Home Medications Medication Instructions Recorded Confirmed Type levothyroxine 100 mcg tablet 100 tablet PO HS 02/08/22 02/08/22 History omega-3 fatty acids-vitamin E 1,000 cap PO DAILY 02/08/22 02/08/22 History 1,000 mg capsule simvastatin 20 mg tablet 20 tablet PO HS 02/08/22 02/08/22 History Patient hx anesthesia problems: none Family hx anesthesia problems: none Results Review: All pre-operative results and documents have been reviewed as part of the pre- operative evaluation. [facility] Past Medical History Medical History Bile duct abnormality Biliary colic Cholelithiasis Elevated liver enzymes Esophageal stricture Nausea and vomiting in adult Upper abdominal pain Social History Social History Smoking packs per day: 1 Smoking cigarettes per day: 20.0 Years smoked: 45 Smoking pack-years: 45.00 Smoking status: Current every day smoker Tobacco type: cigarettes Alcohol intake: never Substance use: never Living arrangements: with family Spiritual care concerns: No Anes - Eval Final PreProcedure Day of Procedure 02/16/22 07:35 Patient weight: overweight Heart: regular rate and rhythm Lungs: clear to auscultation Airway: Mallampati scale class II Neurological: alert and oriented Last oral intake: >/= 8 hours ASA classification: III Emergent: no Anesthesia type and monitoring: general ETT and standard monitoring Results Review: All pre-operative results and documents have been reviewed as part of the pre- operative evaluation. Informed Consent: The patient's anesthetic plan and its attendant risks and benefits were discussed with the patient/family/POA. Questions were solicited and answers provided to the satisfaction of the patient/family/POA.
--- NOTE | 2022-02-16 08:33 | P.OP_ITS ---
Procedure Note - Detailed Date of Procedure 02/16/22 Pre-op Diagnosis Choledocholithiasis, chronic cholecystitis with gallstones Post-op Diagnosis Same Procedure Performed Laparoscopic cholecystectomy Surgeon Sam Mariscal MD Lacquer Sizer Lynn WEEKS Anesthesia General and Local (0.25% bupivacaine with epinephrine) Indications Patient transferred here due to an episode of severe epigastric abdominal pain and CT scan showing gallstones and possibly a common bile duct stone on . Her pain and resolved by the time she arrived at [facility]. MRCP did show common bile duct stones and she underwent an ERCP on 02/09/2022. Patient has a history of chronic cholecystitis and similar symptoms. She is taken to surgery now for laparoscopic cholecystectomy. Findings Chronic inflammation, gallstones, no liver abnormalities. Description of Procedure Patient was taken to surgery and induced into general anesthesia. The abdomen is prepped and draped. Trocars were placed in the usual fashion using local anesthetic and applied Medical optical trocars. A 5 mm camera was used. The gallbladder was decompressed with a laparoscopic aspirator. The cholecystotomy was closed with a Vicryl endoloop. Gallbladder was then retracted anterosuperiorly. Dissection was carried out in the cholecystohepatic triangle. The cystic duct cystic artery dissected out clearly. The gallbladder was dissected off the liver at its lower 3rd. Critical view was achieved. We then securely clipped and divided the cystic duct and cystic artery. The gallbladder was then further dissected free of its remaining peritoneal attachments to the liver. Cautery was used for hemostasis. The gallbladder was then placed in an Endo-Catch bag retrieved through the 10 11 epigastric trocar site. The epigastric trocar was replaced and we visualized the gallbladder fossa and right upper quadrant. Some irrigation and suctioning were done. All looked good with no evidence of bleeding or bile leakage. We then evacuated CO2 and removed the trocar sleeves. Skin wounds were closed with subcuticular 4-0 Monocryl skin suture. The wounds were dressed with Exofin surgical adhesive. Patient was awakened and taken to recovery in good condition. Sponge needle counts were correct x2. Estimated Blood Loss -5 Drains No Packing No Pathology Yes (Gallbladder) Complications No immediate complications Condition Stable Disposition PACU [facility] Billing Surgery - Charge Forward: Surgery Billing (Laparoscopic cholecystectomy)
[2022-02-16] MEDS: ceFAZolin 2 GM/D5W 50 ML 2 GM/50 ML BAG IVPB (08:50)
[2022-02-16] MEDS: BUPIVACAINE/EPINEPHRINE 0.25% 50 ML VIAL INFILTRATE (09:28)
[2022-02-16] MEDS: ONDANSETRON INJ 4 MG/2 ML VIAL IV PUSH (10:25)
[2022-02-16] MEDS: fentaNYL CITRATE INJ (*CRX) 100 MCG/2 ML VIAL 25 MCG IV PUSH (10:45)
== END 2022-02-16 12:22 | disposition home or self-care (01) ==
PROVIDERS: PCP Internal Medicine; Visit Provider Surgery
PROC: 0FT44ZZ Resection of Gallbladder, Percutaneous Endoscopic Approach (ICD-10-PCS; CPT 47562; principal; 2022-02-16 08:45)
DX: K80.64 Calculus of gallbladder and bile duct with chronic cholecystitis without obstruction (principal); F17.210 Nicotine dependence, cigarettes, uncomplicated
CPT/HCPCS: 47562; 88304; A9270; C1713; J0330; J0690; J1100; J1885; J2250; J2405; J2704; J3010; J7120